=== PATIENT | female | born 1980 | race Caucasian/White ===

== ENCOUNTER 2016-07-10 19:46 | Emergency (ER) | payer OTHER ==
[2016-07-10] MEDS ORDERED: ONDANSETRON 4 MG/2 ML VIAL IVP ONE (20:47)
--- NOTE | 2016-07-10 20:47 | EDPHY ---
H & P Stated Complaint: Nausea/Febrile Time Seen by Provider: 07/10/16 20:47 - Personal History Current Tetanus/Diphtheria Vaccine: Yes Current Tetanus Diphtheria and Acellular Pertussis (TDAP): Yes - Medical/Surgical History Hx Asthma: No Hx Chronic Respiratory Disease: No Hx Diabetes: No Hx Cardiac Disease: No Hx Renal Disease: No Hx Cirrhosis: No Hx Alcoholism: No Hx HIV/AIDS: No Hx Splenectomy or Spleen Trauma: No - Social History Smoking Status: Never smoked Constitutional: Initial Vital Signs Temperature (C) 37.9 C 07/10/16 20:02 Heart Rate 82 07/10/16 20:02 Respiratory Rate 20 07/10/16 20:02 Blood Pressure 109/67 07/10/16 20:02 O2 Sat (%) 98 07/10/16 20:02 O2 Delivery Mode Room Air Allergies/Adverse Reactions: No Known Allergies Allergy (Unverified 07/10/16 20:05) Home Medications: Medication Instructions Recorded NK [No Known Home Meds] 07/10/16 Medical Decision Making ED Course/Re-evaluation: CHIEF COMPLAINT: Nausea and vomiting HISTORY OF PRESENT ILLNESS: The patient is a 35 y/o female complaining of nausea and vomiting for the last 4 days after recent flu-like illness. This has caused difficulty eating for her. She reports several people in her household have recently been ill with flu symptoms, but she is the only one with vomiting. She denies fever, diarrhea, cough, or abdominal pain. She denies pertinent medical history. REVIEW OF SYSTEMS: A 10 point review of systems was performed and is negative with the exception of the elements mentioned in the history of present illness. PHYSICAL EXAM: HR, BP, O2 Sat, RR. Temp noted General Appearance: Alert, well hydrated, appropriate, and non-toxic appearing. Head: Atraumatic without scalp tenderness or obvious injury Eyes: Pupils equal, round, reactive to light and accommodation, EOMI, no trauma , no injection. Ears: Clear bilaterally, no perforation, normal landmarks Nose: Atraumatic, no rhinorrhea, clear. Throat: There is no erythema or exudates, no lesions, normal tonsils, mucus membranes moist. Neck: Supple, nontender, no lymphadenopathy. Respiratory: No retractions, no distress, no wheezes, and no accessory muscle use. Lungs are clear to auscultation bilaterally. Cardiovascular: Regular rate and rhythm, no murmurs, rubs, or gallops. Good capillary refill all extremities. Gastrointestinal: Abdomen is soft, nontender, non-distended, no masses, no rebound, no guarding, no peritoneal signs. Musculoskeletal: Normal active ROM of all extremities, atraumatic. Neurological: Alert, appropriate, and interactive. The patient has normal DTRs and non-focal cranial nerves, motor, sensory, and cerebellar exam. Skin: No rashes, good turgor, no nodules on palpation. Past medical history: Currently Past surgical history: denies Family history: noncontributory Social history: Recently moved from [place]. DIFFERENTIAL DIAGNOSIS: The differential diagnosis for the patient's nausea and vomiting included but was not limited to gastroenteritis, gastritis, appendicitis, and medication side effect. MEDICAL DECISION MAKING: This is a healthy 35 y/o female presenting with a 4-day history of nausea and vomiting without fever or abdominal pain. She has a benign abdomen and her exam is otherwise unremarkable. Plan for IV fluids and 4mg IV Zofran for symptoms. Patient is tolerating PO fluids well and feeling much better. She will be discharged home with Zofran and referral to PCP for follow up. She is comfortable with this plan. - Data Points Medications Given: Discontinued Medications Sodium Chloride (Ns) 1,000 mls @ 0 mls/hr IV ONCE ONE PRN Reason: Wide Open Stop: 07/10/16 20:54 Last Admin: 07/10/16 20:59 Dose: 1,000 mls Sodium Chloride (Ns) 1,000 mls @ 0 mls/hr IV ONCE ONE PRN Reason: Wide Open Stop: 07/10/16 20:54 Last Admin: 07/10/16 20:59 Dose: 1,000 mls Ketorolac Tromethamine (Toradol) 30 mg IVP EDNOW ONE Stop: 07/10/16 20:54 Last Admin: 07/10/16 20:59 Dose: 30 mg Ondansetron HCl (Zofran) 4 mg IVP EDNOW ONE Stop: 07/10/16 20:48 Last Admin: 07/10/16 20:50 Dose: 4 mg Ondansetron HCl (Zofran Odt 4 Mg Prepack#2) 1 btl TAKEHOME EDNOW ONE Stop: 07/10/16 20:55 Last Admin: 07/10/16 21:36 Dose: 1 btl Departure - Departure Disposition: Home, Routine, Self-Care Clinical Impression: Gastroenteritis Condition: Good Instructions: Gastroenteritis (ED) Additional Instructions: 1. Increase fluid intake. 2. Take Zofran as prescribed if needed for nausea or vomiting. 3. Follow up with your primary care provider or the doctor you have been referred to for symptoms not improved over the next week. Referrals: NONE *PRIMARY CARE P,. [Primary Care Provider] - As per Instructions Wilman Yuan MD [Medical Doctor] - As per Instructions Report Scribed for: Gregory Manzanares Report Scribed by: Vikki Mcdowell Date of Report: 07/10/16 Time of Report: 20:53
[2016-07-10] MEDS ORDERED: NS 1,000 ML IV ONE ×2 (20:53)
[2016-07-10] MEDS ORDERED: KETOROLAC 30 MG/1 ML SDV IVP ONE (20:53)
[2016-07-10] MEDS ORDERED: ONDANSETRON 4MG PREPACK#2 BTL TAKEHOME ONE (20:54)
[2016-07-10 21:56] VITALS: BP 107/78; PULSE 75; RESP 16; TEMP 99; O2SAT 99
== END 2016-07-10 21:56 | disposition home or self-care (01) ==
DX: K52.9 Noninfective gastroenteritis and colitis, unspecified (principal)
CPT/HCPCS: 96374; J1885; J2405

== ENCOUNTER 2017-09-04 05:59 | Inpatient (IN) | payer OTHER ==
[2017-09-04] MEDS ORDERED: TERBUTALINE SULFATE 1 MG/ML VIAL IV PRN (06:27)
[2017-09-04] MEDS ORDERED: MISOPROSTOL 200 MCG TAB PR PRN (06:27)
[2017-09-04] MEDS ORDERED: LR 1,000 ML IV PRN (06:27)
[2017-09-04] MEDS ORDERED: IBUPROFEN 600 MG TAB PO PRN (06:27)
[2017-09-04] MEDS ORDERED: OXYTOCIN/RINGERS LACTATE 1,000 ML IV PRN (06:27)
[2017-09-04] MEDS ORDERED: LIDOCAINE 1% 300 MG/30 ML SDV SC PRN (06:27)
[2017-09-04] MEDS ORDERED: AMPICILLIN SODIUM 2 GM in NS 100 ML IV ONE (06:27)
[2017-09-04] MEDS ORDERED: LR 500 ML IV PRN (06:27)
[2017-09-04] MEDS ORDERED: OXYTOCIN/RINGERS LACTATE 500 ML IV SCH (06:27)
[2017-09-04] MEDS ORDERED: OLIVE OIL 118 ML BTL MISC PRN (06:27)
[2017-09-04] MEDS ORDERED: EPSOM SALT 454 GM TP PRN (06:27)
[2017-09-04 06:42] LABS: PLATELET COUNT 170 10^3/uL (150-400)
[2017-09-04] MEDS ORDERED: LIDOCAINE 1% 300 MG/30 ML SDV ONE (07:12)
[2017-09-04] MEDS ORDERED: MISOPROSTOL 200 MCG TAB ONE (07:12)
[2017-09-04] MEDS ORDERED: OLIVE OIL 118 ML BTL ONE (07:12)
[2017-09-04] MEDS ORDERED: AMMONIA AROMATIC 1 EACH AMP IH ONE (07:12)
--- NOTE | 2017-09-04 09:14 | GHP ---
[f rep st] PREOP HISTORY AND PHYSICAL DATE OF ADMISSION: 09/04/2017 PREOPERATIVE DIAGNOSIS: Intrauterine at 40 and 6/7 weeks' gestation with induction of labo r secondary to post-term. HISTORY OF PRESENT ILLNESS: The patient is a 36-year-old 2, para 1-0-0-1, with a last menstr ual period of 12/16/2016, and an EDC of 08/29/2017, confirmed by a first-trimester ultrasound at 12 w eeks. She has had good care at [facility] since registration at 12 weeks' gestati on. She had her very early care and 1st ultrasound in [place] and then registered at 12 week s here. Her risk factor is only GBS positive. She has had good ultrasounds in this pregnan cy, good labs in this , and has progressed to 40 and 6/7 weeks' gestation and desires induct ion of labor. She began having contractions at 2 a.m. on the morning of the , and she has been admitted and sta rted on Pitocin. Now, she is currently feeling mild contractions, no leakage of fluid, no vaginal bl eeding, and good movement. PAST OBSTETRICAL HISTORY: In March 2015, she had a viable female, weight of 8 pounds 3 ounces, va ginal delivery. No complications. This is her 2nd . GYNECOLOGICAL HISTORY: She had menarche at age 14, interval every 34 days, length 4-5 days. Last me nstrual period was 12/16/2016. No other issues with pregnancies. She has no history of abnormal Pap s. 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 PAST MEDICAL HISTORY: She has no past medical history, chronic medical problems. PAST SURGICAL HISTORY: The only surgery she had was a fractured finger on her left hand and an arm a t 18 and 26 years old. ALLERGIES: She has no known drug allergies. MEDICATIONS: Include vitamins and DHA. LABORATORIES: She is B positive, antibody negative, RPR nonreactive, rubella immune, hepatitis negat ada, HIV negative. She declined a standard panel. She was negative for gonorrhea and chla mydia normal. AFP was normal. 1-hour GTT 77. GBS was positive. SOCIAL HISTORY: She is . She is a [id number] mom. She lives with her daughter and her hus band. She denies tobacco, alcohol, and drug use. She is from [place]. FAMILY HISTORY: Her mother, brother, and father all have elevated cholesterol. Her mother had hepat itis A. Her father has history of kidney stone. Maternal grandmother had Alzheimer's. REVIEW OF SYSTEMS: Negative, except for positives as above in HPI. OBJECTIVE: She is afebrile. Vital signs are stable. heart tones are 130s, reactive, moderate variability, category 1. She has irregular contractions. Cervix is 4, 80%, -2, and posterior. ASSESSMENT AND PLAN: A 36-year-old 2, para 1-0-0-1, at 40 and 6/7 weeks' gestation for induc tion of labor. Patient is on Pitocin. She has received her first dose of ampicillin for GBS positiv e. After her second dose of ampicillin, the patient will desire an epidural and artificial rupture o f membranes. /[id number]/MODL
[2017-09-04] MEDS: AMPICILLIN SODIUM 1 GM in NS 50 ML IV SCH ×3 (10:10→14:58)
[2017-09-04] MEDS ORDERED: ONDANSETRON 4 MG/2 ML VIAL IVP PRN (10:58)
[2017-09-04] MEDS ORDERED: PHENYLEPHRINE HCL 100 MCG/ML SYR IVP PRN (10:58)
[2017-09-04] MEDS ORDERED: NALOXONE HCL 0.4 MG/ML INJ IVP PRN (10:58)
[2017-09-04] MEDS ORDERED: fentaNYL 2MCG/ML/BUP 0.1% RTU 100 ML EP SCH (11:00)
[2017-09-04] MEDS ORDERED: LR 500 ML IV SCH (11:00)
[2017-09-04] MEDS ORDERED: fentaNYL 200 MCG, BUPIVACAINE 0.5% 20 ML in NS 100 ML EP SCH ×2 (11:00→11:30)
[2017-09-04] MEDS ORDERED: BUPIVACAINE 0.25% 30 ML SDV ONE (11:07)
[2017-09-04] MEDS ORDERED: PHENYLEPHRINE HCL 100 MCG/ML SYR ONE (11:07)
[2017-09-04] MEDS ORDERED: fentaNYL 100 MCG/2 ML INJ ONE (11:08)
--- NOTE | 2017-09-04 11:48 | PREANESOB ---
Obstetric Pre-Anesthesia Info - General Info Proposed Procedure: labor : 2 Para: 0 JULIANNA: 08/29/17 Gestational Age: 40 week(s) and 6 day(s) - Info Status: Full Term Monitors: External FHR Pattern: Reassuring - Labor Status Pitocin: In Use Indications for Labor Analgesia: Augmentation of Labor, Induction of Labor, Pain Control, Possible Labor Epidural: Proposed Anesthesia ROS: healthy patient for labor epidural, induction of labor at 40.6 weeks, Allergies/Adverse Reactions: Allergy/AdvReac Type Severity Reaction Status Date / Time No Known Allergies Allergy Unverified 07/10/16 20:05 Home Medications: Medication Instructions Recorded Vit27&Calcium/Iron/FA 1 each PO DAILY 09/04/17 [ Rx 1 Tablet (RX)] Visit Medications: Generic Name Dose Route Start Last Admin Trade Name Freq PRN Reason Stop Dose Admin Diphenhydramine HCl 25 - 50 mg 09/04/17 10:58 Benadryl Injection IVP 03/03/18 10:57 Q6HRS PRN Itching Ephedrine Sulfate 10 mg 09/04/17 10:58 Ephedrine Sulfate IV 03/03/18 10:57 .Q2M PRN Hypotension Ampicillin Sodium 1 gm/ Sodium 50 mls @ 100 mls/hr 09/04/17 06:27 09/04/17 10 :57 Chloride IV 10/04/17 06:26 50 mls Q4HRS BHAVANI Administration Protocol Lactated Ringer's 1,000 mls @ 0 mls/hr 09/04/17 06:27 09/04/17 07:24 Lr IV 09/05/17 06:26 1,000 mls PRN PRN Administration SEE PROTOCOL CONDITIONS Protocol Per Protocol Lactated Ringer's 500 mls @ 500 mls/hr 09/04/17 06:27 Lr IV PRN PRN Maternal Hypotension Oxytocin/Lactated Ringer's 1,000 mls @ 125 mls/hr 09/04/17 06:27 Pitocin 20 Units/Lr (Premix) IV PRN PRN Post bleeding Oxytocin/Lactated Ringer's 500 mls @ 0 mls/hr 09/04/17 06:27 09/04/17 07:24 Pitocin 30 Units/Lr (Premix) IV 03/03/18 06:26 500 mls CONT BHAVANI Administration Protocol Per Protocol Fentanyl 200 mcg/ Bupivacaine 100 mls @ 0 mls/hr 09/04/17 11:00 HCl 20 ml/ Sodium Chloride EP 09/14/17 10:59 CONT BHAVANI Protocol As Directed Lactated Ringer's 500 mls @ 0 mls/hr 09/04/17 11:00 Lr IV 03/03/18 10:59 CONT BHAVANI As Directed Ibuprofen 600 mg 09/04/17 06:27 Motrin PO ONCE PRN post , pain Lidocaine HCl 300 mg 09/04/17 06:27 Lidocaine Hcl 1% SC 03/03/18 06:26 ONCE PRN episiotomy Magnesium Sulfate 454 gm 09/04/17 06:27 Epsom Salt TP 03/03/18 06:26 Q1H PRN perineal discomfort Misoprostol 800 - 1,000 mcg 09/04/17 06:27 Cytotec VT ONCE PRN Vaginal Atony/Bleeding Naloxone HCl 0.4 mg 09/04/17 10:58 Narcan IVP 03/03/18 10:57 PRN PRN Respiratory depression Worthing Oil 118 ml 09/04/17 06:27 Sweet Oil MISC 03/03/18 06:26 ONCE PRN perineal massage Ondansetron HCl 4 mg 09/04/17 10:58 Zofran IVP 09/05/17 10:57 Q4HRS PRN Nausea/Vomiting, Can't Take PO Phenylephrine HCl 100 mcg 09/04/17 10:58 Neosynephrine IVP 03/03/18 10:57 .Q2M PRN Hypotension Terbutaline Sulfate 0.25 mg 09/04/17 06:27 Brethine IV 03/03/18 06:26 ONCE PRN Tachysystole Discontinued Medications Generic Name Dose Route Start Last Admin Trade Name Freq PRN Reason Stop Dose Admin Ammonia (Aromatic Spirit) Confirm 09/04/17 07:12 Ammonia Aromatic Administered 09/04/17 07:13 Dose 1 each IH .STK-MED ONE Bupivacaine HCl Confirm 09/04/17 11:07 Sensorcaine 0.25% Sdv Administered 09/04/17 11:08 Dose 30 ml .ROUTE .STK-MED ONE Fentanyl Confirm 09/04/17 11:08 Sublimaze Administered 09/04/17 11:09 Dose 100 mcg .ROUTE .STK-MED ONE Ampicillin Sodium 2 gm/ Sodium 110 mls @ 220 mls/hr 09/04/17 06:27 09/04/17 06:56 Chloride IV 09/04/17 06:56 110 mls ONCE ONE Administration Protocol Lidocaine HCl Confirm 09/04/17 07:12 Lidocaine Hcl 1% Administered 09/04/17 07:13 Dose 300 mg .ROUTE .STK-MED ONE Misoprostol Confirm 09/04/17 07:12 Cytotec Administered 09/04/17 07:13 Dose 1,000 mcg .ROUTE .STK-MED ONE Worthing Oil Confirm 09/04/17 07:12 Sweet Oil Administered 09/04/17 07:13 Dose 118 ml .ROUTE .STK-MED ONE Phenylephrine HCl Confirm 09/04/17 11:07 Neosynephrine Administered 09/04/17 11:08 Dose 1,000 mcg .ROUTE .STK-MED ONE - Anesthesia History Response to Local Anesthetics: Normal Anesthesia & Operative History: No Prior Problems Family Anesthesia History: Negative - Social History Substance Use/Abuse: Denies - Vital Signs Height/Weight (Nursing): Height 170.18 cm Weight 77.111 kg - Focused Exam Neck exam: FROM Mallampati Score: Class 2 Mouth exam: normal dental/mouth exam Pulmonary: no respiratory distress Cardiovascular: regular rate and rhythym Labs: 09/04/17 06:15 Patient ABO/Rh B POSITIVE 09/04/17 06:15 - Plan Anesthetic Plan: fatimah Consent Signed and on Chart: Yes Patient/Guardian Understands and Agrees to Plan: Yes Urgent/Emergent Case: Ginger gupta completed preop but documented later for safe timely pt care
--- NOTE | 2017-09-04 11:49 | POSTANESTH ---
Post Anesthetic Evaluation Cardiovascular Status: Normal, Stable Respiratory Status: Normal, Stable Level of Consciousness/Mental Status: Can Participate in Eval Pain Control: Adequate, Prn Tx Ordered Nausea/Vomiting Control: Adequate, Prn Tx Ordered Complications Possibly Related to Anesthesia: None Noted (uneventful placement of labor epidural, good pain relief)
--- NOTE | 2017-09-04 11:51 | OBPROG ---
Labor Progress Note Assessment/Plan: Assessment: 36 y/o @ 40 6/7 weeks IOL secondary to post term doing well Plan: AROM now for clear fluid, s/p 2 doses on Amp for GBS, continue pitocin. status is reassuring. 09/04/17 11:51 Subjective/Intrapartum Course: 09/04/17 11:48 Pt is now comfortable with her epidural. She was having strong, regular contractions. Objective: 09/04/17 06:15 Patient ABO/Rh B POSITIVE 09/04/17 06:15 - SVE Dilation (cm): 5 Effacement (%): 80 Station: -2 Membranes: AROM Amniotic Fluid Color: Clear - Contraction Pattern Assessment Current Contraction Pattern: Regular (Q 2-3) - FHR Assessment River FHR (bpm): 130 FHR Pattern Variability: Moderate FHR Category: 1 - Procedures Non-surgical Procedures: Amniotomy - AP Antepartum Course: 09/04/17 11:49 GBS +, no other risk factors Oxytocin Orders Assessment - Pre-Induction/Augmentation Assessment Indication: post term 40 6/7 weeks Presentation: Vertex Gestational Age: 40 week(s) and 6 day(s) Gestational Age Determined By: Ultrasound Estimated Weight: 2501-3400g Membrane Status: Ruptured Current Contraction Pattern: Regular - Heart Rate Pattern River FHR Baseline (bpm): 130 FHR Category: 1 FHR Pattern Variability: Moderate FHR Accelerations: Present - Patrick's Score Dilation: 5-6cm Effacement: 80+ Station: -2 Cervix: Soft Cervix Position: Posterior Patrick Score Total: 9 - Induction/Augmentation Consent Risks/Benefits of Procedure Reviewed/Pt Agrees to Proceed: Yes ICD10 Worksheet Patient Problems: Problems Problem Status Onset Normal labor Acute - ICD10 Problem Qualifiers (1) Normal labor
[2017-09-04] MEDS ORDERED: LIDO/EPI 2% **for epidural** 20 ML SDV ONE (13:19)
--- NOTE | 2017-09-04 15:26 | OBPROG ---
Labor Progress Note Assessment/Plan: Assessment: 36 y/o @ 40 6/7 weeks IOL secondary to post term doing well Plan: Will begin pushing. 09/04/17 11:51 09/04/17 15:25 Subjective/Intrapartum Course: 09/04/17 11:48 Pt is now comfortable with her epidural. She was having strong, regular contractions. 09/04/17 15:25 Pt is comfortable, feeling occ pressure. Some indigestion. Objective: 09/04/17 06:15 Patient ABO/Rh B POSITIVE 09/04/17 06:15 - SVE Dilation (cm): 10 Effacement (%): 100 Station: +2 Membranes: AROM Amniotic Fluid Color: Clear Dilation Complete Date: 09/04/17 Dilation Complete Time: 15:25 - Contraction Pattern Assessment Current Contraction Pattern: Regular - Procedures Non-surgical Procedures: Amniotomy - AP Antepartum Course: 09/04/17 11:49 GBS +, no other risk factors - Physical Exam Estimated Weight: 2501-3400g Oxytocin Orders Assessment - Pre-Induction/Augmentation Assessment Presentation: Vertex Gestational Age: 40 week(s) and 6 day(s) Estimated Weight: 2501-3400g ICD10 Worksheet Patient Problems: Problems Problem Status Onset Normal labor Acute - ICD10 Problem Qualifiers (1) Normal labor
--- NOTE | 2017-09-04 16:17 | OBDEL ---
Info Type: Vaginal Presentation at Delivery: Vertex L&D Analgesia/Anesthesia Type: Epidural GBS+: Yes Antibiotic Used for + GBS: Ampicillin Intrapartum Medications: Generic Name Dose Route Start Last Admin Trade Name Freq PRN Reason Stop Dose Admin Ampicillin Sodium 1 gm/ Sodium 50 mls @ 100 mls/hr 09/04/17 06:27 09/04/17 14 :58 Chloride IV 10/04/17 06:26 50 mls Q4HRS BHAVANI Administration Protocol Lactated Ringer's 1,000 mls @ 0 mls/hr 09/04/17 06:27 09/04/17 07:24 Lr IV 09/05/17 06:26 1,000 mls PRN PRN Administration SEE PROTOCOL CONDITIONS Protocol Per Protocol Oxytocin/Lactated Ringer's 500 mls @ 0 mls/hr 09/04/17 06:27 09/04/17 07:24 Pitocin 30 Units/Lr (Premix) IV 03/03/18 06:26 500 mls CONT BHAVANI Administration Protocol Per Protocol Ondansetron HCl 4 mg 09/04/17 10:58 09/04/17 15:29 Zofran IVP 09/05/17 10:57 4 mg Q4HRS PRN Administration Nausea/Vomiting, Can't Take PO Discontinued Medications Generic Name Dose Route Start Last Admin Trade Name Freq PRN Reason Stop Dose Admin Ampicillin Sodium 2 gm/ Sodium 110 mls @ 220 mls/hr 09/04/17 06:27 09/04/17 06:56 Chloride IV 09/04/17 06:56 110 mls ONCE ONE Administration Protocol - 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 She was having strong, regular contractions. 09/04/17 15:25 Pt is comfortable, feeling occ pressure. Some indigestion. Indications for Delivery: Postterm Favorable Cervix Vaginal Delivery - Delivery Provider Delivery Physician/CNM: Krystal Robbins - Labor and Delivery Onset of Contractions Date: 09/04/17 Onset of Contractions Time: 02:00 Onset of Contractions Type: Induced Rupture of Membranes Date: 09/04/17 Rupture of Membranes Time: 11:46 Rupture of Membranes Type: Artificial Amniotic Fluid Color: Clear Dilation Complete Date: 09/04/17 Dilation Complete Time: 15:17 Placenta Delivery Date: 09/04/17 Placenta Delivery Time: 16:03 Total Hours of Labor: 14 Non-surgical Procedures: Amniotomy Laceration: 1st Degree Repair: 2-0, Vicryl Vaginal Sponge Count Correct: Yes Vaginal Needle Count Correct: Yes Vaginal Sweep Performed: Yes EBL: 250 Delivery Events: None - Medications Labor Augmentation/Induction Methods Used: Pitocin Labor Augmentation/Induction Indication: Elective, Other (Specify) (post term 40 6/7) Data JULIANNA: 08/29/17 Gestational Age: 40 week(s) and 6 day(s) River Delivery Date: 09/04/17 Delivery Time: 15:59 Sex of : Female Score (1 Min): 8 Score (5 Min): 9 ICD10 Worksheet Patient Problems: Problems Problem Status Onset Normal labor Acute (spontaneous vaginal delivery) Acute - ICD10 Problem Qualifiers (1) Normal labor (2) (spontaneous vaginal delivery)
[2017-09-04] MEDS ORDERED: HYDROCORTISONE 0.5% CREAM TP PRN (16:18)
[2017-09-04] MEDS ORDERED: ACETAMINOPHEN 325 MG TAB PO PRN (16:18)
[2017-09-04] MEDS ORDERED: HYDROCODONE/APAP 5/325 TAB PO PRN (16:18)
[2017-09-04] MEDS ORDERED: SIMETHICONE 80 MG TAB CHEW PO PRN (16:18)
--- NOTE | 2017-09-04 17:38 | POSTANESTH ---
Post Anesthetic Evaluation Cardiovascular Status: Normal, Stable Respiratory Status: Normal, Stable Level of Consciousness/Mental Status: Can Participate in Eval Pain Control: Adequate, Prn Tx Ordered Nausea/Vomiting Control: Adequate, Prn Tx Ordered Complications Possibly Related to Anesthesia: None Noted (uneventful resolution of epidural)
[2017-09-04] MEDS: IBUPROFEN 600 MG TAB PO PRN (22:16)
[2017-09-05] MEDS: IBUPROFEN 600 MG TAB PO PRN ×3 (04:27→18:21)
[2017-09-05] MEDS ORDERED: CALFACTANT 210 MG/6 ML VIAL MISC ONE (08:35)
[2017-09-05] MEDS ORDERED: LIDOCAINE 1% 300 MG/30 ML SDV ONE (08:37)
[2017-09-05] MEDS ORDERED: OLIVE OIL 118 ML BTL ONE (08:37)
[2017-09-05] MEDS ORDERED: AMMONIA AROMATIC 1 EACH AMP IH ONE (08:38)
[2017-09-05] MEDS ORDERED: MISOPROSTOL 200 MCG TAB ONE (08:38)
[2017-09-05] MEDS ORDERED: TERBUTALINE SULFATE 1 MG/ML VIAL ONE (08:38)
[2017-09-05] MEDS ORDERED: OXYTOCIN 10 UNIT/ML VIAL ONE (08:38)
[2017-09-05] MEDS: DOCUSATE SODIUM 100 MG CAP PO PRN (10:39)
--- NOTE | 2017-09-05 11:47 | OBPP ---
Progress Note Assessment/Plan: Assessment: s/p PPD # 1 - pt is stable Plan: Continue routine pp care Plan for d/c home in am 5/09/05/17 11:44 Subjective/ Course: 09/05/17 11:45 Pt seen and examined. Doing well with no complaints. She having some cramping while BF, relieved with Motrin. She is OOB, francine regular diet, voiding and passing flatus. Mod lochia. BF is going well so far with baby girl. Plans to stay over night. Objective: 09/04/17 06:15 Patient ABO/Rh B POSITIVE 09/04/17 06:15 Temp Pulse Resp BP Pulse Ox 36.3 C 68 16 99/66 L 94 09/04/17 19:45 09/04/17 19:45 09/04/17 19:45 09/04/17 19:45 09/04/17 19:45 Uterine Position/Fundal Height: Umbilicus -1 Uterine Tone: Firm Physical Exam - Physical Exam Respiratory: lungs clear, normal breath sounds Cardiac/Chest: regular rate, rhythm Abdomen: normal bowel sounds, non-tender, soft, flatus (+) Extremities: non-tender, normal inspection Skin: normal color, warm/dry Neuro/Psych: alert, normal mood/affect, oriented x 3
[2017-09-06] MEDS: DOCUSATE SODIUM 100 MG CAP PO PRN (00:10)
[2017-09-06] MEDS: IBUPROFEN 600 MG TAB PO PRN ×3 (00:10→12:39)
[2017-09-06 12:08] VITALS: BP 111/70
--- NOTE | 2017-09-06 12:20 | OBPP ---
Progress Note Assessment/Plan: Assessment: 36 y/o PPD #2 s/p IOL secondary to post term Plan: D/c home today with Ibuprofen and APNO cream. Follow-up @ [facility] 4 and 6 weeks. 09/04/17 11:51 09/04/17 15:25 09/06/17 12:16 Subjective/ Course: 09/05/17 11:45 Pt seen and examined. Doing well with no complaints. She having some cramping while BF, relieved with Motrin. She is OOB, francine regular diet, voiding and passing flatus. Mod lochia. BF is going well so far with baby girl. Plans to stay over night. 09/06/17 12:15 Pt is doing well this am. She has min perineal pain and cramping. She is ambulating and voiding without difficulty and has min lochia. BF is going well and baby is doing well. Objective: 09/04/17 06:15 Patient ABO/Rh B POSITIVE 09/04/17 06:15 Temp Pulse Resp BP Pulse Ox 36.3 C 64 16 111/70 98 09/06/17 08:30 09/06/17 08:30 09/06/17 08:30 09/06/17 08:30 09/05/17 20:02 Uterine Position/Fundal Height: Umbilicus -2 Uterine Tone: Firm Physical Exam - Physical Exam General Appearance: WD/WN, alert, no apparent distress Neck: non-tender, full range of motion, supple Respiratory: chest non-tender, lungs clear, normal breath sounds Cardiac/Chest: regular rate, rhythm Abdomen: normal bowel sounds Extremities: swelling (no), Jone's sign (neg)
--- NOTE | 2017-09-06 12:21 | OBGCSDC ---
General Delivery Information - General Info : 2 Para: 1 Abortions: 0 Type: Vaginal L&D Analgesia/Anesthesia Type: Epidural Admission Date: 09/04/17 Labs: Patient ABO/Rh B POSITIVE 09/04/17 06:15 Hct 37.1 % (38.0-47.0) L 09/04/17 06:15 - Hospital Course Antepartum: 09/04/17 11:49 GBS +, no other risk factors Intrapartum: 09/04/17 11:48 Pt is now comfortable with her epidural. She was having strong, regular contractions. 09/04/17 15:25 Pt is comfortable, feeling occ pressure. Some indigestion. : 09/05/17 11:45 Pt seen and examined. Doing well with no complaints. She having some cramping while BF, relieved with Motrin. She is OOB, francine regular diet, voiding and passing flatus. Mod lochia. BF is going well so far with baby girl. Plans to stay over night. 09/06/17 12:15 Pt is doing well this am. She has min perineal pain and cramping. She is ambulating and voiding without difficulty and has min lochia. BF is going well and baby is doing well. Vaginal - Delivery Provider Delivery Physician/CNM: Krystal Robbins - Diagnosis Labor: Induced Rupture of Membranes Type: Artificial Amniotic Fluid Color: Clear Laceration: 1st Degree Repair: 2-0, Vicryl Delivery Events: None - Procedures Non-surgical Procedures: Amniotomy - Delivery Non-surgical Procedures: Amniotomy EBL: 250 Data JULIANNA: 08/29/17 Gestational Age: 41 week(s) and 1 day(s) River Delivery Date: 09/04/17 Delivery Time: 15:59 Sex of : Female [place] Weight (gm): 3826 g Score (1 Min): 8 Score (5 Min): 9 Discharge Information - Discharge Information Prescriptions: Ibuprofen [Motrin (*)] 600 mg PO Q6HRS PRN #30 tab PRN Reason: Pain, Mild Condition: Good Instruction/Follow Up: Four Weeks, Six Weeks
== END 2017-09-06 13:20 | disposition home or self-care (01) | DRG 775 ==
LOC: FLD 05:59 → FOB 18:10
PROVIDERS: ADMIT Obstetrics & Gynecology; ATTEND Obstetrics & Gynecology
PROC: 3E033VJ Introduction of Other Hormone into Peripheral Vein, Percutaneous Approach (ICD-10-PCS; principal; 2017-09-04)
PROC: 10E0XZZ Delivery of Products of Conception, External Approach (ICD-10-PCS; principal; 2017-09-04)
PROC: 10907ZC Drainage of Amniotic Fluid, Therapeutic from Products of Conception, Via Natural or Artificial Opening (ICD-10-PCS; principal; 2017-09-04)
PROC: 0HQ9XZZ Repair Perineum Skin, External Approach (ICD-10-PCS; principal; 2017-09-04)
DX: O48.0 Post-term pregnancy (principal); O70.0 First degree perineal laceration during delivery; O99.820 Streptococcus B carrier state complicating pregnancy; Z3A.40 40 weeks gestation of pregnancy; Z37.0 Single live birth
CPT/HCPCS: J0290; J2370; J2405; J2590; J3010; J3105